=== PATIENT | female | born 1940 | race Caucasian/White ===

== ENCOUNTER 2016-10-21 05:59 | Inpatient (IN) | payer MEDICARE ==
--- NOTE | 2016-10-18 13:03 | HP ---
HISTORY AND PHYSICAL: DATE OF SURGERY/ADMISSION: 10/21/16 DATE OF OFFICE VISIT: 10/16/16 ATTENDING PHYSICIAN: Rancho Torres MD. (DICTATED BY ELA HUERTA) PROCEDURE: Right total hip arthroplasty. CHIEF COMPLAINT: Right hip pain. HISTORY OF PRESENT ILLNESS: The patient is a very pleasant 76-year-old female who presents today for history and physical examination prior to undergoing an elective right total hip replacement. In brief, the patient has tried multiple conservative treatments such as physical therapy and NSAIDs; however, continues to have hip pain from her right hip osteoarthritis and has elected to undergo a right total hip arthroplasty on 10/21/[address] Rancho Torres. PAST MEDICAL HISTORY: 1. Hypothyroidism due to a goiter. 2. Hypertension. 3. Elevated cholesterol. 4. Osteoarthritis. 5. History of skin cancer on her hand removed with cryotherapy. The patient denies any chest pain or shortness of breath. PAST SURGICAL HISTORY: 1. Hysterectomy in 1981. 2. Gallbladder in 1990. 3. Appendectomy in 1969. 4. Hand surgery. 5. Total knee replacement in 2008. MEDICATIONS: 1. Levothyroxine 100 mcg one tablet daily. 2. Atenolol 100 mg one tablet daily. 3. B complex one tablet daily. 4. Calcium one tablet daily. 5. Vitamin C one tablet daily. 6. Vitamin D3 3800 international units. 7. Coenzyme Q10 one tablet daily. 8. Hydrochlorothiazide 25 mg one tablet daily. 9. Norvasc 5 mg one tablet daily. 10. Fosamax 70 mg one tablet weekly. 11. Fish oil 1000 mg one tablet daily. 12. PreserVision one tablet twice daily. ALLERGIES: 1. SIMVASTATIN. 2. PERCOCET. FAMILY MEDICAL HISTORY: Positive for arterial disease, cancer and diabetes. SOCIAL HISTORY: No tobacco use. No drinking use. Lives in a one floor home in her daughter's backyard. REVIEW OF SYSTEMS: General: Negative for fevers, chills, or night sweats. No difficulty with anesthesia. HEENT: Negative for headache, lightheadedness, or syncopal episodes. Integument: Negative for abrasions, lesions, or open wounds , no difficulty with wound healing. Pulmonary: Negative for shortness of breath with exertion, chronic cough, or COPD. Cardiothoracic: Negative for chest pain, palpitations, or edema. Positive for hypertension. GI: Positive for nausea. Negative vomiting, constipation, diarrhea, or GERD. : Negative for urinary frequency, urgency, history of UTIs or kidney problems. Musculoskeletal: Positive for generalized osteoarthritis. Positive for back pain. Positive for right hip pain. Neuro: Negative for paresthesias, numbness. No history of seizures, stroke, or epilepsy. Endocrine: Positive for thyroid disease. Negative for diabetes. Hematologic: Negative for easy bruising, excessive bleeding. No history of DVTs. Infectious Disease: History of MRSA. Negative for hepatitic C or HIV. PHYSICAL EXAMINATION GENERAL: Well appearing, in no acute distress. Alert and oriented female who has difficulty with hearing. VITAL SIGNS: Height 64.5, weight 190 pounds. Pulse 69, blood pressure 170/87, temperature 98.2. BMI 32.1. HEENT: Normocephalic, atraumatic. EOMI. PULMONARY: Lungs are clear to auscultation bilaterally. No crackles, rhonchi, or wheezes. CARDIO: Regular rate and rhythm. No murmurs, gallops, or rubs. No edema noted on bilateral lower extremities. ABDOMEN: Negative CVA tenderness bilaterally. Abdomen is soft, nontender, nondistended. MUSCULOSKELETAL: Mildly antalgic gait favoring the right side. No swelling noted on bilateral lower extremities. Negative calf pain bilaterally. NEUROLOGIC: Alert and oriented x3. Cranial nerves grossly intact. Sensation intact to light touch in bilateral lower extremities. DIAGNOSTIC STUDIES: The patient underwent a chest x-ray on 10/16/16, which showed stigmata of chronic obstructive pulmonary disease and emphysema with no acute cardiopulmonary process seen, as well as hip x-rays on the right hand side. IMPRESSION: Right hip osteoarthritis. PLAN/RECOMMENDATIONS: The patient is to undergo a right total hip arthroplasty on 10/21/[address] Torres. She was cleared by her primary care provider on , per the patient. However, we do not have those notes yet. She noted having an episode last night where she became very lightheaded and felt that her blood pressure was elevated. We have asked her to follow up with her PCP to review these symptoms prior to her surgery. She is to undergo lab testing today and she would like to go back home after her procedure as she is living near her daughters and they will be taking care of her. Medications were not sent for the patient as she has had a prior allergy to Percocet and it is unknown which narcotic medication she will tolerate. ELA HUERTA [id number]/[facility] #: [id number] MTDD
[2016-10-21] MEDS ORDERED: Gabapentin CAP(*) 300 MG PO ONE (06:00)
[2016-10-21] MEDS ORDERED: Metoclopramide TAB* 10 MG PO ONE (06:00)
[2016-10-21] MEDS ORDERED: Famotidine IV* 10 MG/ML 2 ML (20 mg) IV ONE (06:00)
[2016-10-21] MEDS ORDERED: Buffered Lidocaine 1% SYR 3ML* 3 ML/SYR SYRINGE INTRADERM ONE (06:00)
[2016-10-21] MEDS ORDERED: Scopolamine 1.5 mg* PATCH TRANSDERM ONE (06:00)
[2016-10-21] MEDS ORDERED: Famotidine IV* 10 MG/ML 2 ML (20 mg) ONE (06:11)
[2016-10-21] MEDS ORDERED: Metoclopramide TAB* 10 MG ONE (06:12)
[2016-10-21] MEDS ORDERED: Scopolamine 1.5 mg* PATCH ONE (06:12)
[2016-10-21] MEDS ORDERED: Gabapentin CAP(*) 300 MG ONE (06:12)
[2016-10-21] MEDS ORDERED: Clindamycin 900 MG IVPREMIX(* 900 MG/50 ML SDV IV ONE (06:12)
[2016-10-21] MEDS ORDERED: ceFAZolin 2 GM PREMIX(*) 2 GM/50 ML BAG IVPB ONE (06:51)
[2016-10-21] MEDS ORDERED: Ketorolac INJ* 30 MG/ML 1 ML VIAL ONE (06:59)
[2016-10-21] MEDS ORDERED: Bupivacaine 0.5% SDV PF* 30 ML VIAL ONE (06:59)
[2016-10-21] MEDS ORDERED: Phenylephrine INJ* 10 MG/ML 1 ML VIAL (10 MG) ONE (06:59)
[2016-10-21] MEDS ORDERED: Dexamethasone IV* 4 MG/ML 1 ML (4 MG) ONE (06:59)
[2016-10-21] MEDS ORDERED: Lidocaine 2% PF * 5 ML VIAL ONE (06:59)
[2016-10-21] MEDS ORDERED: Propofol* 500 MG/50 ML BTL ONE (06:59)
[2016-10-21] MEDS ORDERED: Propofol* 10 MG/ML 20 ML BTL IV PUSH ONE (06:59)
[2016-10-21] MEDS ORDERED: Ondansetron INJ* 2 MG/ML VIAL ONE (06:59)
[2016-10-21] MEDS ORDERED: Midazolam* 1 MG/ML 5 ML VIAL (5 MG) ONE (07:00)
[2016-10-21] MEDS ORDERED: KETAMINE HCL* 50 MG/ML 10 ML VIAL ONE (07:00)
[2016-10-21] MEDS ORDERED: EPHEDrine (Pressors)* 50 MG/ML VIAL ONE (07:48)
[2016-10-21] MEDS ORDERED: Ondansetron INJ* 2 MG/ML VIAL IV PRN ×2 (08:29→08:35)
[2016-10-21] MEDS ORDERED: Phenylephrine INJ* 50 MG in NS 0.9% 250 ML* 245 ML IV PRN (08:29)
[2016-10-21] MEDS ORDERED: DiMENhydriNATE IV* 50 MG/ML VIAL IV PUSH PRN (08:29)
[2016-10-21] MEDS ORDERED: EPHEDrine (Pressors)* 50 MG/ML VIAL IV PUSH PRN (08:35)
[2016-10-21] MEDS ORDERED: Lactated Ringers 500 ml BAG* 500 ML IV PRN (08:35)
[2016-10-21] MEDS ORDERED: Ropivacaine* 300 MG in NS 0.9% 250 ML* 240 ML EPIDURAL SCH (09:00)
[2016-10-21] MEDS ORDERED: Bisacodyl SUPP* 10 MG SUPP PR PRN (09:40)
[2016-10-21] MEDS ORDERED: Polyethylene Glycol 3350* 17 GM PACKET PO PRN (09:40)
[2016-10-21] MEDS ORDERED: Morphine INJ* 4 MG/ML 1 ML SYRINGE IV PRN (09:40)
[2016-10-21] MEDS ORDERED: diPHENhydraMINE IV* 50 MG/ML 1 ml VIAL (BENADRYL) IV PRN (09:40)
[2016-10-21] MEDS ORDERED: traMADol TAB* 50 MG PO PRN (10:00)
[2016-10-21] MEDS ORDERED: DiMENhydriNATE IV* 50 MG/ML VIAL ONE (10:13)
--- NOTE | 2016-10-21 10:56 | RAD ---
Indication: Postop RIGHT total hip replacement. Comparison: October 16, 2016 radiographs Technique: Supine AP pelvis and proximal RIGHT femur Report: Noncemented RIGHT total hip prosthesis appears normally located in the AP projection. No periprosthetic fracture evident. Surrounding soft tissue edema and subcutaneous emphysema. Innumerable pelvic phleboliths and few RIGHT pelvic surgical clips. IMPRESSION: Unremarkable immediate postop appearance of the RIGHT total hip prosthesis in the AP projection.
[2016-10-21] MEDS: Ketorolac INJ* 15 MG/ML 1 ML VIAL IV SCH ×3 (12:40→21:04)
[2016-10-21] MEDS: ceFAZolin 1 GM in Dextrose (*) 1 GM/50 ML BAG IVPB SCH (15:33)
[2016-10-21] MEDS ORDERED: Warfarin TAB(*) 10 MG PO ONE (17:00)
[2016-10-21] MEDS: D5W 1/2 NS 1000 ML BAG* 1,000 ML IV SCH (19:30)
[2016-10-21] MEDS: Magnesium Hydroxide LIQ* 30 ML UDC PO SCH (21:03)
[2016-10-21] MEDS: Docusate CAP* 100 MG PO SCH (21:05)
[2016-10-21] MEDS: Heparin VIAL(*) 5000 UNITS/ML VIAL (FIVE THOUSAND) SUBCUT SCH (21:05)
--- NOTE | 2016-10-21 22:24 | OP ---
DATE OF OPERATION: 10/21/16 - ROOM #348 DATE OF : 38 SURGEON: Rancho Torres MD CERTIFIED DETENTION DEPUTY: Graciela Villeda RPA ANESTHESIOLOGIST: Anuj Kumar MD ANESTHESIA: Epidural and sedation. PRE-OP DIAGNOSIS: Osteoarthritis, right hip. POST-OP DIAGNOSIS: Osteoarthritis, right hip. OPERATIVE PROCEDURE: Right total hip arthroplasty. INDICATIONS: Ms. Maria is a 76-year-old female who has been having more and more troubles with right hip pain. She initially had good response with anti- inflammatories but recently has been having more troubles with hip pain, which is being quite limiting. With rotation of the hip, I could recreate her pain and I discussed with her that a right total hip arthroplasty should work well to decrease her pain and improve her function. Risks of surgery such as infection, scar formation, stiffness, DVT, pulmonary embolism, hardware failure , leg length discrepancy, and instability were some of the risks discussed. She had been declared medically optimized and wished to proceed. ESTIMATED BLOOD LOSS: 200 cc. COMPLICATIONS: None. HARDWARE: Luz Maria 7.5 M/L taper, 50-mm Continuum cup, 0-degree liner, -3.5 mm, 32- mm head. DESCRIPTION OF PROCEDURE: The patient was brought to the OR and epidural anesthesia was established. Cardona catheter was placed. She was then rolled into the left lateral decubitus position and axillary roll was placed. Right hip area was prepped and then draped. Incision was made centered over the greater trochanter and extended proximally and distally for about 7 cm. Incision was carried down through the skin and subcutaneous fat. Continuous palpation occurred so that I would not wander off and we continue through the fat to get down to the greater troch. Fascia was encountered and fascia was sharply incised. Using electrocautery, greater trochanteric bursa was taken down and nice exposure of the back side of the femur was obtained. Hohmann was placed into the gluteus medius/gluteus minimus and coming upwards, a nice exposure of the piriformis and short external rotators was obtained. Electrocautery was used to take down the piriformis and short external rotators and a T-capsulotomy was made. Hip was then easily dislocated. Cutting guide was placed and the femoral neck was marked. Femoral neck cut was then taken and when the head was resected, it could be seen how she had worn down to smooth polished bone on the weightbearing surface of the femur. Femur was then pushed a little bit anteriorly and a C-retractor was placed anteriorly. Broad Hohmann was placed inferiorly and nice exposure of the acetabulum was obtained. Labrum and unfortunate little bit of capsule was taken down using sharp dissection but the two had essentially been scarred together. Using a 44 reamer, she was deepened just a little bit and then progressively expanded. At a 49, I had a nice [id number]-kiwk fit with bleeding bone and a 50 cup was called for. This correlated well with preoperative templating. 50 cup was then impacted into place. Two screws were placed and a nice bite was obtained. Trial liner was placed and attention was turned to the proximal femur. Box osteotome was used to open the femoral canal and the canal finder was placed. Beginning with a 5 broach, she was lateralized some as the canal finder, I had to come over a little bit, and with lateralizing some, I did feel to have a better shot downwards. 5, 6, and then 7.5 broach were all nicely seated and with 7.5, I felt like I had a good snug fit. Again, she had been templated to 7.5, so this correlated well. She was trialed with a 0 and seemed little bit long and the - 3.5 mm head seemed to give a perfect leg length. She also had excellent stability where she could be flexed up to 90 degrees and only at approximately 75 degrees of internal rotation did she start to lever out. Hyperflexion, she stayed in and with full adduction and internal rotation, again it took past 60 degrees to begin together to lever out. In extension, the knee did not extend and she was again nice and stable. Trial instrumentation was removed and the hip was copiously pulse lavaged. Liner was impacted in its place. 7.5 M/L taper was also impacted into place. She had about the same length, so a -3.5 head was called for and impacted into place. She had the same wonderful motion and stability. Hip was again copiously pulse lavaged. Short external rotators and remnant of capsule were repaired together to the back side of the greater trochanter. Hip was again pulse lavaged and the fascia was repaired using interrupted #1 Vicryl sutures. Hip was again pulse lavaged and subcutaneous layers of fat were reapproximated in layers using 2-0 Vicryl. Skin was closed using lukas. Sterile dressing and an abduction pillow were applied in the OR. The patient was then awakened, stable on transfer to the recovery room. [id number]/[facility] #: [id number] MTDD
[2016-10-22] MEDS: ceFAZolin 1 GM in Dextrose (*) 1 GM/50 ML BAG IVPB SCH ×2 (01:09→08:09)
[2016-10-22] MEDS: Ketorolac INJ* 15 MG/ML 1 ML VIAL IV SCH (02:58)
[2016-10-22] MEDS ORDERED: Lactated Ringers 500 ml BAG* 500 ML IV ONE (04:00)
[2016-10-22] MEDS: D5W 1/2 NS 1000 ML BAG* 1,000 ML IV SCH ×3 (04:05→20:25)
[2016-10-22] MEDS: Levothyroxine TAB* 100 MCG TAB PO SCH (05:35)
[2016-10-22] MEDS: HYDROcodone/ACETAMIN 5-325 MG* 1 TAB PO PRN ×4 (05:35→19:03)
[2016-10-22] MEDS ORDERED: Ondansetron TAB* 4 MG PO PRN (06:00)
[2016-10-22 06:10] LABS: Hematocrit 29 % (35-47); Hemoglobin 9.8 g/dl (12.0-16.0)
[2016-10-22 06:25] LABS: BUN/Creatinine Ratio 24.4 (8-20); Calcium 8.1 mg/dL (8.6-10.3); EGFR African American 82.3 (>60); Potassium 2.9 mmol/L (3.5-5.0)
[2016-10-22] MEDS: Ondansetron INJ* 2 MG/ML VIAL IV PRN (08:09)
[2016-10-22] MEDS: Docusate CAP* 100 MG PO SCH ×2 (08:11→20:14)
[2016-10-22] MEDS: Vitamin THERAPEUTIC TAB PO SCH (08:11)
[2016-10-22] MEDS: amLODIPine TAB* 5 MG PO SCH (08:11)
[2016-10-22] MEDS: Atenolol TAB* 25 MG PO SCH (08:11)
[2016-10-22] MEDS: Hydrochlorothiazide TAB* 25 MG PO SCH (08:12)
[2016-10-22] MEDS: Heparin VIAL(*) 5000 UNITS/ML VIAL (FIVE THOUSAND) SUBCUT SCH ×2 (08:15→20:17)
[2016-10-22] MEDS: Magnesium Hydroxide LIQ* 30 ML UDC PO SCH ×2 (08:15→20:15)
--- NOTE | 2016-10-22 09:06 | PN ---
Progress Note - Progress Note SOAP: Subjective: []Patient seen OOB in chair with nurse, OT and PT present after feeling lightheaded after getting OOB to chair. She is alert and oriented, feeling better with cool wash cloth on forehead and drinking some water. BP meds had not been given this am. Pain right hip well managed. Objective: [] Vital Signs Temp 98.5 F 10/22/16 07:48 Pulse 61 10/22/16 07:48 Resp 13 10/22/16 08:20 BP 113/49 10/22/16 07:48 Pulse Ox 97 10/22/16 08:20 Intake & Output 10/21/16 10/22/16 10/22/16 18:59 06:59 18:59 Intake Total 1845 3369 622 Output Total 1325 625 Balance 520 2744 622 Intake: IV Fluids 1550 1469 562 D5W 1/2 NS 969 LR 500 562 NS 50ML, Cefazolin 2G 50 lr 1500 IVPB 55 60 ABX - CEFAZOLIN 55 60 Oral 240 1900 Output: Cardona 1075 625 Emesis 50 Estimated Blood Loss 200 Other: # Bowel Movements 0 Laboratory Results - last 24 hr 10/22/16 10/22/16 10/22/16 05:57 05:57 05:57 Hgb 9.8 L Hct 29 L INR (Anticoag Therapy) 1.10 Sodium 126 L Potassium 2.9 L Chloride 90 L Carbon Dioxide 28 Anion Gap 8 BUN 21 Creatinine 0.86 Est GFR ( Amer) 82.3 Est GFR (Non-Af Amer) 64.0 BUN/Creatinine Ratio 24.4 H Glucose 131 H Calcium 8.1 L Right hip dressing is dry and intact Calf non tender and soft + DF/PF right ankle sensation intact Assessment: []s/p Right total hip arthroplasty POD #1 post operative hypotension Plan: []Continue to hold BP meds until normo tensive/ asymptomatic Continue to encourage fluids/ monitor, if she continues to be hypotensive, consider medicine consult PT/OT as able, WBAT RLE Coumadin with heparin bridge, 8 mg today
[2016-10-22] MEDS ORDERED: traMADol TAB* 50 MG PO PRN (10:00)
[2016-10-22] MEDS ORDERED: Warfarin TAB(*) 4 MG PO ONE (17:00)
[2016-10-23] MEDS: Ondansetron INJ* 2 MG/ML VIAL IV PRN (03:36)
[2016-10-23] MEDS: Levothyroxine TAB* 100 MCG TAB PO SCH (05:54)
[2016-10-23] MEDS: Atenolol TAB* 25 MG PO SCH (08:18)
[2016-10-23] MEDS: amLODIPine TAB* 5 MG PO SCH (08:18)
[2016-10-23] MEDS: Hydrochlorothiazide TAB* 25 MG PO SCH (08:19)
[2016-10-23] MEDS: Acetaminophen TAB* 325 MG PO PRN ×4 (08:40→23:00)
[2016-10-23] MEDS: HYDROcodone/ACETAMIN 5-325 MG* 1 TAB PO PRN (08:41)
[2016-10-23] MEDS: Docusate CAP* 100 MG PO SCH ×2 (08:42→19:44)
[2016-10-23] MEDS: Vitamin THERAPEUTIC TAB PO SCH (08:42)
[2016-10-23] MEDS: Magnesium Hydroxide LIQ* 30 ML UDC PO SCH ×2 (08:42→19:45)
[2016-10-23 08:44] LABS: Hematocrit 27 % (35-47); Hemoglobin 9.5 g/dl (12.0-16.0)
[2016-10-23] MEDS: Heparin VIAL(*) 5000 UNITS/ML VIAL (FIVE THOUSAND) SUBCUT SCH (08:56)
[2016-10-23] MEDS ORDERED: Warfarin TAB(*) 2.5 MG PO ONE (17:00)
[2016-10-24] MEDS: Levothyroxine TAB* 100 MCG TAB PO SCH (05:37)
[2016-10-24] MEDS: Acetaminophen TAB* 325 MG PO PRN ×4 (05:50→20:55)
[2016-10-24] MEDS ORDERED: Scopolomine PATCH Remove* 1 NOTE MISC PATCH OFF ONE (06:00)
[2016-10-24 06:15] LABS: Hematocrit 30 % (35-47); Hemoglobin 10.4 g/dl (12.0-16.0)
[2016-10-24] MEDS: amLODIPine TAB* 5 MG PO SCH (08:16)
[2016-10-24] MEDS: Hydrochlorothiazide TAB* 25 MG PO SCH (08:16)
[2016-10-24] MEDS: Atenolol TAB* 25 MG PO SCH (08:16)
[2016-10-24] MEDS: Magnesium Hydroxide LIQ* 30 ML UDC PO SCH ×2 (08:17→20:49)
[2016-10-24] MEDS: Vitamin THERAPEUTIC TAB PO SCH (08:24)
[2016-10-24] MEDS: Docusate CAP* 100 MG PO SCH ×2 (08:25→20:48)
--- NOTE | 2016-10-24 09:54 | PN ---
Progress Note - Progress Note SOAP: Subjective: []Patient seen OOB in chair. Feels unsafe getting OOB on her own and feels one more day of PT will be helpful prior to discharge to home. Daughter present and they will be available to help over the weekend. The patient feels by Friday she will be OK to be left alone at home. VNS will also be coming to the home on Friday. Objective: [] Vital Signs Temp 98.2 F 10/24/16 07:38 Pulse 72 10/24/16 07:38 Resp 18 10/24/16 08:00 BP 130/52 10/24/16 07:38 Pulse Ox 99 10/24/16 08:00 Intake & Output 10/23/16 10/24/16 10/24/16 18:59 06:59 18:59 Intake Total 700 850 436 Output Total 950 1250 225 Balance -250 -400 211 Intake: IV Fluids 0 LR 0 Oral 700 850 436 Output: Urine 950 1250 225 Other: Estimated Void Medium Date of Last Bowel 10/24/16 Movement # Bowel Movements 1 Estimated Stool Amount Medium # Voids 1 Laboratory Results - last 24 hr 10/24/16 10/24/16 06:01 06:01 Hgb 10.4 L Hct 30 L INR (Anticoag Therapy) 1.49 H Right hip dressing coming undone, the incision is healing well without drainage. calf non tender and soft +DF/PF right ankle Assessment: []s/p Right total hip arthroplasty POD #3 Plan: []She will work on ABduction exercises, ambulation WBAT with PT/OT today and be discharged home tomorrow. Coumadin 6 mg today Dressing change
[2016-10-24] MEDS ORDERED: Warfarin TAB(*) 6 MG PO ONE (17:00)
[2016-10-25] MEDS: Acetaminophen TAB* 325 MG PO PRN (03:00)
[2016-10-25] MEDS: Levothyroxine TAB* 100 MCG TAB PO SCH (05:17)
[2016-10-25 06:55] LABS: Hematocrit 28 % (35-47); Hemoglobin 9.9 g/dl (12.0-16.0)
[2016-10-25] MEDS: Docusate CAP* 100 MG PO SCH (09:44)
[2016-10-25] MEDS: Magnesium Hydroxide LIQ* 30 ML UDC PO SCH (09:44)
[2016-10-25] MEDS: Hydrochlorothiazide TAB* 25 MG PO SCH (09:44)
[2016-10-25] MEDS: Atenolol TAB* 25 MG PO SCH (09:44)
[2016-10-25] MEDS: amLODIPine TAB* 5 MG PO SCH (09:44)
[2016-10-25] MEDS: HYDROcodone/ACETAMIN 5-325 MG* 1 TAB PO PRN (10:12)
[2016-10-25] MEDS: Vitamin THERAPEUTIC TAB PO SCH (10:12)
--- NOTE | 2016-10-25 11:11 | PN ---
Progress Note - Progress Note SOAP: Subjective: 76 y/o female s/p RIGHT total hip arthroplasty 10/21/2016. Patient reports feeling well, pain controlled well with tylenol alone x 24 hours. afebrile, VSS overnight. WOrking well with PT, no complaints, eager for D/C. Objective: General- Well appearing, NAD MSK- R knee dressing removed, incision intact, minimal clear drainage noted, lukas intact, new dressing placed, + PF/ DF b/l Le's, PT 2+ b/L, Neg homans sign b/l, sensation grossly intact b/l LE's, able to rise from chair without great difficulty. Vital Signs Temp 98.3 F 10/25/16 07:50 Pulse 73 10/25/16 07:50 Resp 16 10/25/16 10:12 BP 138/46 10/25/16 07:50 Pulse Ox 100 10/25/16 07:50 Intake & Output 10/24/16 10/25/16 10/25/16 18:59 06:59 18:59 Intake Total 676 1340 Output Total 225 500 Balance 451 840 Intake: Oral 676 1340 Output: Urine 225 500 Other: Estimated Void Medium Medium # Voids 1 1 Laboratory Results - last 24 hr 10/25/16 10/25/16 06:40 06:40 Hgb 9.9 L Hct 28 L INR (Anticoag Therapy) 1.53 H Assessment: 76 y/o female s/p RIGHT total hip arthroplasty 10/21/2016. Plan: - DVT pro- lovenox today, coumadin 8 mg tonight - Working well with PT. - Continue current pain regimen - FOllow up with DR Torres within 3-4 weeks. Active Medications Generic Name Dose Route Start Last Admin Trade Name Freq PRN Reason Stop Dose Admin Acetaminophen 650 mg 10/21/16 09:40 10/25/16 03:00 Tylenol Tab* PO 650 mg Q4H PRN Administration pain, fever Hydrocodone Bitart/Acetaminophen 1 tab 10/21/16 09:46 10/25/16 10:12 [place] 5-325 Tab* PO 1 tab Q4H PRN Administration PAIN - MILD Hydrocodone Bitart/Acetaminophen 2 tab 10/21/16 09:46 10/22/16 19:03 [place] 5-325 Tab* PO 2 tab Q4H PRN Administration PAIN - MODERATE TO SEVERE Amlodipine Besylate 5 mg 10/22/16 09:00 10/25/16 09:44 Norvasc Tab* PO Not Given DAILY [facility] Atenolol 100 mg 10/22/16 09:00 10/25/16 09:44 Tenormin Tab* PO Not Given DAILY [facility] Bisacodyl 10 mg 10/21/16 09:40 Dulcolax Supp* TN DAILY PRN constipation Diphenhydramine HCl 12.5 mg 10/21/16 09:40 Benadryl Iv* IV Q6H PRN PRURITIS Docusate Sodium 100 mg 10/21/16 21:00 10/25/16 09:44 Colace Cap* PO Not Given BID [facility] Hydrochlorothiazide 25 mg 10/22/16 09:00 10/25/16 09:44 Hydrodiuril Tab* PO Not Given DAILY [facility] Phenylephrine HCl 50 mg/ 250 mls @ 6 mls/hr 10/21/16 08:29 Sodium Chloride IV .(Initial Rate) PRN Systolic Less than 90 20 MCG/MIN Dextrose/Sodium Chloride 1,000 mls @ 125 mls/hr 10/21/16 10:00 10/22/16 20:25 D5w 1/2 Ns 1000 Ml Bag* IV 125 mls/hr PER RATE TY Administration Lactulose 30 ml 10/21/16 09:40 10/23/16 18:45 Lactulose* PO 30 ml Q6H PRN Administration constipation Levothyroxine Sodium 100 mcg 10/22/16 06:00 10/25/16 05:17 Synthroid Tab* PO 100 mcg DAILY@0600 [facility] Administration Magnesium Hydroxide 30 ml 10/21/16 21:00 10/25/16 09:44 Milk Of Magnesia Liq* PO Not Given BID [facility] Morphine Sulfate 4 mg 10/21/16 09:40 Morphine Inj (Syringe)* IV Q2H PRN PAIN - BREAKTHROUGH Multivitamins 1 tab 10/22/16 09:00 10/25/16 10:12 Theragran Tab* PO 1 tab DAILY TY Administration Ondansetron HCl 4 mg 10/22/16 06:00 10/23/16 03:36 Zofran Inj* IV 4 mg Q6H PRN Administration nausea Ondansetron HCl 4 mg 10/22/16 06:00 10/23/16 18:17 Zofran Tab* PO 4 mg Q6H PRN Administration NAUSEA Polyethylene Glycol/Electrolytes 17 gm 10/21/16 09:40 10/22/16 08:12 Miralax* PO 17 gm DAILY PRN Administration Constipation Tramadol HCl 50 mg 10/22/16 10:00 Ultram* PO Q8H PRN PAIN - MILD
[2016-10-25 12:01] VITALS: BP 142/61
== END 2016-10-25 13:35 | disposition home health service (06) | DRG 470 ==
LOC: AA 05:59 → SSU 11:14
PROVIDERS: ADMIT Orthopaedic Surgery; ATTEND Orthopaedic Surgery
PROC: 0SR902A Replacement of Right Hip Joint with Metal on Polyethylene Synthetic Substitute, Uncemented, Open Approach (ICD-10-PCS; principal; 2016-10-21 07:30)
DX: M16.11 Unilateral primary osteoarthritis, right hip (principal); I10 Essential (primary) hypertension; E03.9 Hypothyroidism, unspecified; E04.9 Nontoxic goiter, unspecified; E78.5 Hyperlipidemia, unspecified; Z96.652 Presence of left artificial knee joint; J45.990 Exercise induced bronchospasm; I95.81 Postprocedural hypotension; Z85.828 Personal history of other malignant neoplasm of skin; Z90.710 Acquired absence of both cervix and uterus; Z88.8 Allergy status to other drugs, medicaments and biological substances; Z83.3 Family history of diabetes mellitus; Z80.9 Family history of malignant neoplasm, unspecified
CPT/HCPCS: 36415; 72170; 80048; 85014; 85018; 85610; 88304; 88311; A9270-GY; C1713; C1776; J0690; J1100; J1240; J1644; J1885; J2250; J2405; J2704; J2795

== ENCOUNTER 2021-09-06 22:35 | Observation (INO) ==
[2021-09-06] MEDS ORDERED: Ondansetron 4 mg VIAL 2 MG/ML 2 ml VIAL IV ONE (22:42)
[2021-09-06] MEDS ORDERED: Lactated Ringers 1000 ml BAG 1,000 ML IV ONE (22:42)
[2021-09-06 23:10] LABS: ABS Lymphocytes 1.7 10^3/ul (1.0-4.8); ABS Monocytes 0.8 10^3/ul (0-0.8); ABS Neutrophils 7.4 10^3/ul (1.5-7.7); Eosinophil % 0.2 %; Hematocrit 38 % (35-47); Hemoglobin 13.2 g/dL (12.0-16.0); Lymphocyte % 16.9 %; Mean Corpuscular HGB Conc 35 g/dL (31-36); Mean Corpuscular Hemoglobin 32 pg (27-31); Mean Corpuscular Volume 90 fL (80-97); Mean Platelet Volume 7.3 fL (7.4-10.4); Nucleated Red Blood Cells % 0.1; Platelet Count 312 10^3/uL (150-450); Red Blood Count 4.17 10^6 /uL (3.70-4.87); Red Cell Distribution Width 14 % (10-15); White Blood Count 9.8 10^3/uL (3.5-10.8)
[2021-09-06 23:27] LABS: Albumin 4.1 g/dL (3.2-5.2); Albumin/Globulin Ratio 1.7 (1-3); Globulin 2.4 g/dL (2-4); Potassium 3.3 mmol/L (3.5-5.0); Total Bilirubin 0.5 mg/dL (0.2-1.0); Total Protein 6.5 g/dL (6.4-8.9); eGFR CKD-EPI 68.4 (>60)
[2021-09-07 00:57] LABS: High Sensitivity Troponin 1 Hr 5 pg/mL (<15)
[2021-09-07 04:29] LABS: Magnesium 1.6 mg/dL (1.9-2.7)
[2021-09-07] MEDS ORDERED: Magnesium Sulfate 2 gm BAG 2 GM/50 ML BAG IVPB ONE (05:17)
[2021-09-07 06:23] LABS: ABS Basophils 0.1 10^3/ul (0-0.2); ABS Lymphocytes 2.5 10^3/ul (1.0-4.8); ABS Monocytes 0.9 10^3/ul (0-0.8); ABS Neutrophils 5.5 10^3/ul (1.5-7.7); Eosinophil % 0.4 %; Hematocrit 35 % (35-47); Hemoglobin 12.4 g/dL (12.0-16.0); Mean Corpuscular HGB Conc 36 g/dL (31-36); Mean Corpuscular Hemoglobin 32 pg (27-31); Mean Corpuscular Volume 89 fL (80-97); Mean Platelet Volume 7.3 fL (7.4-10.4); Platelet Count 294 10^3/uL (150-450); Red Blood Count 3.86 10^6 /uL (3.70-4.87); Red Cell Distribution Width 13 % (10-15); White Blood Count 8.9 10^3/uL (3.5-10.8)
[2021-09-07] MEDS ORDERED: Potassium Chlor 20 meq TAB.ER PO ONE (06:24)
[2021-09-07 07:03] LABS: Calcium 9.5 mg/dL (8.6-10.3); Magnesium 3.3 mg/dL (1.9-2.7); eGFR CKD-EPI 86.6 (>60)
[2021-09-07 07:16] LABS: TSH Ultra Thyroid Stim Horm 0.69 mcIU/mL (0.34-5.60)
[2021-09-07] MEDS: KCL 20 MEQ/100 ML IVPREMIX 20 MEQ/100 ML BAG IV SCH ×2 (07:54→11:09)
[2021-09-07 11:17] LABS: Urine Osmo 216 mOsm/kg (150-1150)
[2021-09-07 12:26] LABS: Urine Appearance Turbid; Urine Bilirubin Negative (Negative); Urine Blood Negative (Negative); Urine Color Yellow; Urine Glucose Negative (Negative); Urine Ketones Negative (Negative); Urine Nitrite Negative (Negative); Urine Protein Negative (Negative); Urine Specific Gravity 1.005 (1.002-1.030); Urine Urobilinogen Negative (Negative)
[2021-09-07 12:26] LABS: Osmolality Serum 270 mOsm/kg (275-295)
[2021-09-07] MEDS: Enoxaparin 40 MG/0.4 ML SYR SUBCUT SCH (14:04)
[2021-09-08 07:13] LABS: ABS Lymphocytes 1.4 10^3/ul (1.0-4.8); ABS Monocytes 0.7 10^3/ul (0-0.8); ABS Neutrophils 6.8 10^3/ul (1.5-7.7); Eosinophil % 0.1 %; Hematocrit 40 % (35-47); Hemoglobin 14.2 g/dL (12.0-16.0); Lymphocyte % 15.5 %; Mean Corpuscular HGB Conc 35 g/dL (31-36); Mean Corpuscular Hemoglobin 32 pg (27-31); Mean Corpuscular Volume 91 fL (80-97); Mean Platelet Volume 7.3 fL (7.4-10.4); Platelet Count 332 10^3/uL (150-450); Red Blood Count 4.44 10^6 /uL (3.70-4.87); Red Cell Distribution Width 14 % (10-15); White Blood Count 8.9 10^3/uL (3.5-10.8)
[2021-09-08 07:21] LABS: INR 0.99 (0.86-1.15)
[2021-09-08 07:28] LABS: Calcium 9.6 mg/dL (8.6-10.3); Potassium 3.8 mmol/L (3.5-5.0)
[2021-09-08 08:30] VITALS: BP 138/78
[2021-09-08] MEDS: Enoxaparin 40 MG/0.4 ML SYR SUBCUT SCH (09:19)
== END 2021-09-08 11:40 | disposition home or self-care (01) ==
LOC: EDHOLD 22:35 → ED 22:35 → SUATTDRO 09-07 03:42 → MEDTELE 09-07 10:38
PROVIDERS: ADMIT Internal Medicine; ATTEND Hospitalist